=== PATIENT | male | born 1980 | race Caucasian/White ===

== ENCOUNTER 2016-06-30 15:38 | Emergency (ER) | payer BC ==
[2016-06-30] MEDS ORDERED: IBUPROFEN 600 MG TABLET PO ONE (15:48)
--- NOTE | 2016-06-30 15:50 | Emergency Department Record ---
History of Present Illness - General Chief complaint: Extremity Problem Stated complaint: RIGHT WRIST INJURY 06/28/16 Time Seen by Provider: 06/30/16 15:47 Source: Patient Mode of Arrival: Ambulatory Limitations: No limitations - History of Present Illness Initial comments: 36 yo male presents with right wrist pain since . No injury. No fever. The pain is distal over the radial side. No weakness. Certain movements increase the pain. He has had increased manual work at his job the last week. Onset/Timin -: Days(s) Location: Right, Hand -: Yes Myalgia Severity scale (1-10): 8 Quality: Aching Consistency: Constant Improves with: Rest Worsens with: Exertion Associated Symptoms: Denies other symptoms - Related Data Previous Rx's Medication Instructions Recorded Ibuprofen [Motrin 600Mg] 600 mg PO Q6H #20 tablet 06/30/16 Allergies Allergy/AdvReac Type Severity Reaction Status Date / Time No Known Drug Allergies Allergy Verified 06/30/16 15:44 Travel Screening - Travel/Exposure Within Last 30 Days Have you traveled within the last 30 days?: No - Travel/Exposure Within Last Year Have you traveled outside the [place] in the last year?: No - Additonal Travel Details Have you been exposed to anyone with a communicable illness?: No - Travel Symptoms Symptom Screening: None Review of Systems Constitutional: Denies: Chills, Fever, Malaise, Weakness Eyes: Denies: Eye discharge ENT: Denies: Congestion, Throat pain Respiratory: Denies: Cough Cardiovascular: Denies: Chest pain, Palpitations, Syncope Endocrine: Denies: Fatigue Gastrointestinal: Denies: Abdominal pain, Diarrhea, Nausea, Vomiting Genitourinary: Denies: Dysuria, Frequency, Hematuria Musculoskeletal: Reports: Arthralgia, Joint swelling, Myalgia. Denies: Back pain, Neck pain Skin: Denies: Bruising, Change in color, Rash Neurological: Denies: Confusion, Headache Psychiatric: Denies: Anxiety Hematological/Lymphatic: Denies: Blood Clots, Easy bleeding, Easy bruising, Swollen glands Past Medical History - SOCIAL HISTORY Smoking Status: Current every day smoker Alcohol Use: Occassional Drug Use: None - RESPIRATORY Hx Respiratory Disorders: No - CARDIOVASCULAR Hx Cardio Disorders: No - NEURO Hx Neuro Disorders: No - GI Hx GI Disorders: No - Hx Genitourinary Disorders: No - ENDOCRINE Hx Endocrine Disorders: No Hx Diabetes: No Hx Thyroid Disease: No - MUSCULOSKELETAL Hx Musculoskeletal Disorders: No - PSYCH Hx Psych Problems: Yes Hx Anxiety: Yes - HEMATOLOGY/ONCOLOGY Hx Hematology/Oncology Disorders: No Family Medical History Any Significant Family History?: Yes Hx Cancer: Mother, Grandparents Hx Dementia: Grandparents Hx Diabetes: Mother, Brother/Sister Physical Exam - General General Appearance: Alert, Oriented x3, Cooperative, No acute distress Limitations: No limitations - Head Head exam: Normal inspection - Eye Eye exam: Normal appearance, PERRL - ENT ENT exam: Normal exam Ear exam: Normal external inspection Nasal Exam: Normal inspection Mouth exam: Normal external inspection - Neck Neck exam: Normal inspection, Full ROM. negative: Tenderness - Respiratory Respiratory exam: Normal lung sounds bilaterally. negative: Respiratory distress - Cardiovascular Cardiovascular Exam: Regular rate, Normal rhythm, Normal heart sounds Peripheral Pulses: 2+: Radial (R) - Extremities Extremities exam: Normal inspection, Full ROM, Normal capillary refill, Tenderness Image of Hand: 1 - tender along the radial side, no redness, pain wth thumb flexion, no abnormal warmth, intact normal skin, pain with ulnar wrist deviation. - Neurological Neurological exam: Alert, Normal gait, Oriented X3 - Psychiatric Psychiatric exam: Normal affect, Normal mood. negative: Agitated, Anxious - Skin Skin exam: Dry, Intact, Normal color, Warm. negative: Cyanosis, Diaphoretic, Erythema Course Vital Signs 06/30/16 15:40 Temperature 98.2 F Pulse Rate 95 H Respiratory 16 Rate Blood Pressure 144/91 Pulse Ox 98 - Reevaluation(s) Reevaluation #1: XR was negative We discussed tendonitis and home care as well as reasons to return 06/30/16 16:29 Disposition Disposition: Discharge Clinical Impression: Tendonitis Disposition: Home, Self-Care Condition: (1) Good Instructions: Tendinitis (ED) Additional Instructions: Ice 2-3 times daily No lifting or weight bearing until pain free Use the splint for comfort Followup this week with your doctor Prescriptions: Ibuprofen [Motrin 600Mg] 600 mg PO Q6H #20 tablet Forms: Patient Portal Access Time of Disposition: 16:30
--- NOTE | 2016-07-04 12:22 | RADIOLOGY REPORT ---
EXAM: RIGHT WRIST, FIVE VIEWS HISTORY: NO INJURY. RIGHT WRIST PAIN ACUTE EXTENDING INTO RIGHT FOREARM. TECHNIQUE: Five views of the right wrist were obtained. Comparison: None. FINDINGS: No bone or joint abnormality. IMPRESSION: NEGATIVE RIGHT WRIST EXAMINATION. JOB NUMBER: [id number] MTDD
== END 2016-06-30 16:48 | disposition home or self-care (01) ==
LOC: ER 15:38
DX: M70.831 Other soft tissue disorders related to use, overuse and pressure, right forearm (principal)
CPT/HCPCS: 99283

== ENCOUNTER 2018-02-07 17:11 | Emergency (ER) | payer BC ==
[2018-02-07] MEDS ORDERED: 0.9 % SODIUM CHLORIDE 1,000 ML BAG IV ONE (17:31)
[2018-02-07] MEDS ORDERED: KETOROLAC 30 MG/ML VIAL IVP ONE (17:31)
[2018-02-07 17:58] LABS: BASO % 0.7 % (0-6); EOS % 3.1 % (0-6); GRAN % 43.6 % (47-80); HEMATOCRIT 40.5 % (42.0-52.0); HEMOGLOBIN 13.5 gm/dl (14.0-18.0); MEAN CELL VOLUME 86.9 fl (81-97); MEAN CORPUSCULAR HGB CONC 33.3 g/dl (32-36); MEAN PLATELET VOLUME 8.7 fl (7.4-10.4); MONO % 9.6 % (0-9); PLATELET COUNT 263 K/uL (130-400); RED BLOOD COUNT 4.66 M/uL (4.40-5.70); RED CELL DISTRIBUTION WIDTH 13.2 % (11.5-14.5); WHITE BLOOD COUNT W/O DIFF 4.2 K/uL (4.2-12.2)
[2018-02-07 17:59] LABS: MEAN CORPUSCULAR HEMOGLOBIN 28.9 pg (27-33)
[2018-02-07 18:12] LABS: BLOOD UREA NITROGEN 7 mg/dL (6-20); CREATININE 0.7 mg/dL (0.7-1.2); EST GLOMERULAR FILTRATION RATE > 60 mL/min
[2018-02-07 18:15] LABS: GLUCOSE,RANDOM 103 mg/dL (74-109)
[2018-02-07] MEDS ORDERED: POTASSIUM CHLORIDE 20 MEQ TABLET PO ONE (18:43)
--- NOTE | 2018-02-07 18:56 | Emergency Department Record ---
History of Present Illness - General Chief Complaint: Headache Migraine Stated Complaint: SCHMID Time Seen by Provider: 02/07/18 17:23 Source: Patient Mode of Arrival: Wheelchair Limitations: No limitations - History of Present Illness Initial Comments: pt has had a headache since saturday when he was camping out in the heat. he was seen in [facility] care on saturday and had a neg strep and was told his wbcs were low. he was running a fever at the time. since then he has contd to have a headache that is global that is a 2 when he sits but is an 8 when he bends over. the headache started gradually. he has no other symptoms. he has no n/ v. no sinus congestion. MD Complaint: Headache Onset/Timin -: Days(s) Onset Description: Gradual Location: Other Severity: Moderate Severity scale (1-10): 2 Quality: Aching, Other Consistency: Constant, Intermittent Improves With: Nothing Worsens With: Immobilization, Movement of head/neck Associated Symptoms: Fever, Other Treatments Prior to Arrival: None - Symptoms of Stroke Symptoms of stroke: Dizziness - Related Data Home Medications Medication Instructions Recorded Confirmed Last Taken No Home Med [NO HOME MEDS] 02/07/18 02/07/18 Unknown Allergies Allergy/AdvReac Type Severity Reaction Status Date / Time No Known Drug Allergies Allergy Unverified 08/24/16 14:56 Travel Screening - Travel/Exposure Within Last 30 Days Have you traveled within the last 30 days?: No Review of Systems Reviewed: No additional complaints except as noted below Constitutional: Reports: As per HPI, Fever. Denies: Chills, Malaise, Night sweats, Weakness, Weight change Eyes: Reports: As per HPI. Denies: Eye discharge, Eye pain, Photophobia, Vision change ENT: Reports: As per HPI. Denies: Congestion, Dental pain, Ear pain, Epistaxis , Hearing loss, Throat pain Respiratory: Reports: As per HPI. Denies: Cough, Dyspnea, Hemoptysis, Stridor, Wheezes Cardiovascular: Reports: As per HPI. Denies: Arrhythmia, Chest pain, Dyspnea on exertion, Edema, Murmurs, Orthopnea, Palpitations, Paroxysmal nocturnal dyspnea, Rheumatic Fever, Syncope Endocrine: Reports: As per HPI. Denies: Fatigue, Heat or cold intolerance, Polydipsia, Polyuria Gastrointestinal: Reports: As per HPI. Denies: Abdominal pain, Constipation, Diarrhea, Hematemesis, Hematochezia, Melena, Nausea, Vomiting Genitourinary: Reports: As per HPI. Denies: Dysuria, Frequency, Hematuria, Incontinence, Retention, Testicular pain, Testicular mass, Urgency Musculoskeletal: Reports: As per HPI. Denies: Arthralgia, Back pain, Gout, Joint swelling, Myalgia, Neck pain Skin: Reports: As per HPI. Denies: Bruising, Change in color, Change in hair/ nails, Lesions, Pruritus, Rash Neurological: Reports: As per HPI, Headache. Denies: Abnormal gait, Confusion, Numbness, Paresthesias, Seizure, Tingling, Tremors, Vertigo, Weakness Psychiatric: Reports: As per HPI. Denies: Anxiety, Auditory hallucinations, Depression, Homicidal thoughts, Suicidal thoughts, Visual hallucinations Hematological/Lymphatic: Reports: As per HPI. Denies: Anemia, Blood Clots, Easy bleeding, Easy bruising, Swollen glands Past Medical History - SOCIAL HISTORY Smoking Status: Current every day smoker Alcohol Use: None Drug Use: None - RESPIRATORY Hx Respiratory Disorders: No - CARDIOVASCULAR Hx Cardio Disorders: No - NEURO Hx Neuro Disorders: No - GI Hx GI Disorders: No - Hx Genitourinary Disorders: No - ENDOCRINE Hx Endocrine Disorders: No Hx Diabetes: No Hx Thyroid Disease: No - MUSCULOSKELETAL Hx Musculoskeletal Disorders: No - PSYCH Hx Psych Problems: Yes Hx Anxiety: Yes - HEMATOLOGY/ONCOLOGY Hx Hematology/Oncology Disorders: No Family Medical History Any Significant Family History?: Yes Hx Cancer: Mother, Grandparents Hx Dementia: Grandparents Hx Diabetes: Mother, Brother/Sister Physical Exam - General General Appearance: Alert, Oriented x3, Cooperative, Mild distress - Head Head exam: Normal inspection - Eye Eye exam: Normal appearance, PERRL, EOMI Pupils: Normal accommodation - ENT ENT exam: Normal exam, Mucous membranes moist, Normal external ear exam, Normal orophraynx Ear exam: Normal external inspection. negative: External canal tenderness Nasal Exam: Normal inspection. negative: Discharge, Sinus tenderness Mouth exam: Normal external inspection, Tongue normal Teeth exam: Normal inspection. negative: Dental caries Throat exam: Normal inspection. negative: Tonsillar erythema, Tonsillar exudate - Neck Neck exam: Normal inspection, Full ROM. negative: Tenderness - Respiratory Respiratory exam: Normal lung sounds bilaterally. negative: Respiratory distress - Cardiovascular Cardiovascular Exam: Regular rate, Normal rhythm, Normal heart sounds - GI/Abdominal GI/Abdominal exam: Soft, Normal bowel sounds. negative: Tenderness - Rectal Rectal exam: Deferred - exam: Deferred - Extremities Extremities exam: Normal inspection, Full ROM, Normal capillary refill. negative: Tenderness - Back Back exam: Reports: Normal inspection, Full ROM. Denies: Muscle spasm, Rash noted, Tenderness - Neurological Neurological exam: Alert, CN II-XII intact, Normal gait, Oriented X3 - Psychiatric Psychiatric exam: Normal affect, Normal mood - Skin Skin exam: Dry, Intact, Normal color, Warm Course Vital Signs 02/07/18 17:18 Temperature 98.6 F Pulse Rate [ 71 Pulse Ox Probe] Respiratory 18 Rate Blood Pressure 130/95 [Left Arm] Pulse Ox 98 - Reevaluation(s) Reevaluation #1: 02/07/18 19:20 pt feels better Reevaluation #2: 02/07/18 19:21 pt feels much better. ct neg except deviated septum. pts symptoms does not warrant an lp and does not want one 02/07/18 19:22 Medical Decision Making - Lab Data Result diagrams: 02/07/18 17:50 02/07/18 17:50 Lab Results 02/07/18 02/07/18 02/07/18 Range/Units 17:50 17:50 17:50 WBC 4.2 (4.2-12.2) K/uL RBC 4.66 (4.40-5.70) M/uL Hgb 13.5 L (14.0-18.0) gm/dl Hct 40.5 L (42.0-52.0) % MCV 86.9 (81-97) fl MCH 28.9 (27-33) pg MCHC 33.3 (32-36) g/dl RDW 13.2 (11.5-14.5) % Plt Count 263 (130-400) K/uL MPV 8.7 (7.4-10.4) fl Gran % 43.6 L (47-80) % Lymphocytes % 43.0 (16-45) % Monocytes % 9.6 H (0-9) % Eosinophils % 3.1 (0-6) % Basophils % 0.7 (0-6) % Sodium 141 (136-145) mmol/L Potassium 3.3 L (3.4-4.5) mmol/L Chloride 101 (98-107) mmol/L Carbon Dioxide 29.0 (22-29) mmol/L Anion Gap 11.0 (7-16) BUN 7 (6-20) mg/dL Creatinine 0.7 (0.7-1.2) mg/dL Estimated GFR > 60 mL/min Random Glucose 103 (74-109) mg/dL Calcium 8.7 (8.6-10.0) mg/dL Monoscreen (NEGATIVE) Group A Strep Screen Negative (NEGATIVE) 02/07/18 Range/Units 17:50 WBC (4.2-12.2) K/uL RBC (4.40-5.70) M/uL Hgb (14.0-18.0) gm/dl Hct (42.0-52.0) % MCV (81-97) fl MCH (27-33) pg MCHC (32-36) g/dl RDW (11.5-14.5) % Plt Count (130-400) K/uL MPV (7.4-10.4) fl Gran % (47-80) % Lymphocytes % (16-45) % Monocytes % (0-9) % Eosinophils % (0-6) % Basophils % (0-6) % Sodium (136-145) mmol/L Potassium (3.4-4.5) mmol/L Chloride (98-107) mmol/L Carbon Dioxide (22-29) mmol/L Anion Gap (7-16) BUN (6-20) mg/dL Creatinine (0.7-1.2) mg/dL Estimated GFR mL/min Random Glucose (74-109) mg/dL Calcium (8.6-10.0) mg/dL Monoscreen Negative (NEGATIVE) Group A Strep Screen (NEGATIVE) Disposition Disposition: Discharge Clinical Impression: Hypokalemia Headache Qualifiers: Headache type: unspecified Headache chronicity pattern: acute headache Intractability: intractable Qualified Code(s): R51 - Headache Disposition: Home, Self-Care Condition: (1) Good Instructions: Acute Headache (ED) Additional Instructions: follow up with family doctor. return sooner if worse . push fluids. if headaches continue follow up with neurologist. rest Forms: Patient Portal Access Quality - Quality Measures Quality Measures: N/A - Blood Pressure Screening Does Patient Have Any of the Following: No Blood Pressure Classification: Pre-Hypertensive BP Reading Systolic Measurement: 116 Diastolic Measurement: 80 Screening for High Blood Pressure: < Pre-Hypertensive BP, F/U Documented > [ G8950] Pre-Hypertensive Follow-up Interventions: Follow-up with rescreen every year.
[2018-02-07] MEDS ORDERED: ACETAMINOPHEN 500 MG TABLET PO ONE (18:59)
--- NOTE | 2018-02-09 10:16 | CT SCAN REPORT ---
EXAM: CT SCAN HEAD WO CONTRAST HISTORY: INTRACTABLE HEADACHE. TECHNIQUE: Axial CT scan of the head performed without IV contrast. COMPARISON: None. FINDINGS: No definite acute intracranial hemorrhage identified. No focal mass effect or midline shift apparent. No definite acute infarct or intracranial mass lesion seen. Deviation of the nasal septum to the right. No depressed calvarial fracture evident. IMPRESSION: 1. EMERGENCY NONCONTRAST HEAD CT APPEARS ESSENTIALLY NEGATIVE WITH NO DEFINITE ACUTE INTRACRANIAL HEMORRHAGE OR FOCAL MASS EFFECT EVIDENT. THERE IS DEVIATION OF THE NASAL SEPTUM TO THE RIGHT. 2. IF THE PATIENT'S NEUROLOGIC SYMPTOMS PERSIST, FOLLOW-UP BRAIN MRI MAY BE USEFUL FOR FURTHER EVALUATION, IF NOT CONTRAINDICATED. JOB NUMBER: [id number] MTDD
== END 2018-02-07 19:34 | disposition home or self-care (01) ==
LOC: ER 17:11
DX: R51 Headache (principal); E87.6 Hypokalemia; M54.2 Cervicalgia; F17.210 Nicotine dependence, cigarettes, uncomplicated
CPT/HCPCS: 99284 ×2; 96374; 96361; 85025; 82375; 80048; 87880; 86308; 70450; J1885; J7030

== ENCOUNTER 2018-11-15 07:50 | Emergency (ER) | payer BC, MEDICAID ==
[2018-11-15] MEDS ORDERED: Diph,Pert(Acell),Tet Vac 0.5 ML SYR IM ONE (08:03)
--- NOTE | 2018-11-15 08:03 | Emergency Department Record ---
History of Present Illness - General Chief Complaint: Wound, puncture Stated Complaint: PUNCTURE WOUND/LT FOREARM Time Seen by Provider: 11/15/18 07:57 Source: Patient Mode of Arrival: Ambulatory - History of Present Illness Initial Commments: the patient was at work moving metal sheets through a machine which had jammed. He move a jammed metal shee to "un-jam" it, and it punctured his left proximal forearm around 0600. He is NOT UTD on his tetanus. Onset/Timin -: Hour(s) Place: Work Context: Accidental Associated Symptoms: Pain Treatments Prior to Arrival: Bandage - Related Data Hx Tetanus Toxoid Vaccination: Yes Year of Tetanus Vaccination: 2011 Previous Rx's Medication Instructions Recorded Cephalexin [Keflex] 500 mg PO QID #39 cap 11/15/18 Allergies Allergy/AdvReac Type Severity Reaction Status Date / Time No Known Drug Allergies Allergy Unverified 08/24/16 14:56 Travel Screening - Travel/Exposure Within Last 30 Days Have you traveled within the last 30 days?: No Review of Systems Reviewed: No additional complaints except as noted below Constitutional: Reports: As per HPI. Denies: Chills, Fever, Malaise, Night sweats, Weakness, Weight change Eyes: Reports: As per HPI. Denies: Eye discharge, Eye pain, Photophobia, Vision change ENT: Reports: As per HPI. Denies: Congestion, Dental pain, Ear pain, Epistaxis, Hearing loss, Throat pain Respiratory: Reports: As per HPI. Denies: Cough, Dyspnea, Hemoptysis, Stridor, Wheezes Cardiovascular: Reports: As per HPI. Denies: Arrhythmia, Chest pain, Dyspnea on exertion, Edema, Murmurs, Orthopnea, Palpitations, Paroxysmal nocturnal dyspnea, Rheumatic Fever, Syncope Endocrine: Reports: As per HPI. Denies: Fatigue, Heat or cold intolerance, Polydipsia, Polyuria Gastrointestinal: Reports: As per HPI. Denies: Abdominal pain, Constipation, Diarrhea, Hematemesis, Hematochezia, Melena, Nausea, Vomiting Genitourinary: Reports: As per HPI. Denies: Dysuria, Frequency, Hematuria, Incontinence, Retention, Testicular pain, Testicular mass, Urgency Musculoskeletal: Reports: As per HPI. Denies: Arthralgia, Back pain, Gout, Joint swelling, Myalgia, Neck pain Skin: Reports: As per HPI. Denies: Bruising, Change in color, Change in hair/nails, Lesions, Pruritus, Rash Neurological: Reports: As per HPI. Denies: Abnormal gait, Confusion, Headache, Numbness, Paresthesias, Seizure, Tingling, Tremors, Vertigo, Weakness Psychiatric: Reports: As per HPI. Denies: Anxiety, Auditory hallucinations, Depression, Homicidal thoughts, Suicidal thoughts, Visual hallucinations Hematological/Lymphatic: Reports: As per HPI. Denies: Anemia, Blood Clots, Easy bleeding, Easy bruising, Swollen glands Past Medical History - SOCIAL HISTORY Smoking Status: Current every day smoker - RESPIRATORY Hx Respiratory Disorders: No - CARDIOVASCULAR Hx Cardio Disorders: No - NEURO Hx Neuro Disorders: No - GI Hx GI Disorders: No - Hx Genitourinary Disorders: No - ENDOCRINE Hx Endocrine Disorders: No Hx Diabetes: No Hx Thyroid Disease: No - MUSCULOSKELETAL Hx Musculoskeletal Disorders: No - PSYCH Hx Psych Problems: Yes Hx Anxiety: Yes - HEMATOLOGY/ONCOLOGY Hx Hematology/Oncology Disorders: No Family Medical History Any Significant Family History?: Yes Hx Cancer: Mother, Grandparents Hx Dementia: Grandparents Hx Diabetes: Mother, Brother/Sister Physical Exam - General General Appearance: Alert, Oriented x3, Cooperative, No acute distress - Head Head exam: Normal inspection - Eye Eye exam: Normal appearance, PERRL Pupils: Normal accommodation - ENT ENT exam: Normal exam, Mucous membranes moist, Normal external ear exam, Normal orophraynx, TM's normal bilaterally Ear exam: Normal external inspection. negative: External canal tenderness Nasal Exam: Normal inspection. negative: Discharge, Sinus tenderness Mouth exam: Normal external inspection, Tongue normal Teeth exam: Normal inspection. negative: Dental caries Throat exam: Normal inspection. negative: Tonsillar erythema, Tonsillomegaly, Tonsillar exudate - Neck Neck exam: Normal inspection, Full ROM. negative: Lymphadenopathy, Meningismus, Tenderness - Respiratory Respiratory exam: Normal lung sounds bilaterally. negative: Respiratory distress - Cardiovascular Cardiovascular Exam: Regular rate, Normal rhythm, Normal heart sounds - GI/Abdominal GI/Abdominal exam: Soft. negative: Tenderness - Rectal Rectal exam: Deferred - exam: Deferred - Extremities Extremities exam: Normal inspection, Full ROM, Normal capillary refill, Other (laceration to proximal left forearm 2cm in length). negative: Tenderness - Back Back exam: Reports: Normal inspection, Full ROM. Denies: Muscle spasm, Rash noted, Tenderness Image of Body Front/Back: 1 - 2 cm laceration - Neurological Neurological exam: Alert, CN II-XII intact, Normal gait, Oriented X3, Reflexes normal. negative: Motor sensory deficit - Psychiatric Psychiatric exam: Normal affect, Normal mood - Skin Skin exam: Dry, Intact, Normal color, Warm Course - Reevaluation(s) Reevaluation #1: 11/15/18 08:17 PROCEDURE: Locally anesthetized with lido 1% no epi 4.5cc ; sterile technique, copious irrigation of wound, explored for evidence of FB, none found; patient informed of possibility of occult retained FB, tendon involvement, tendon sheath infection, possible need for further care of infected or FB retention, etc. Wound closed with #3 4.0 prolene simple interrupteds. Patient tolerated procedure well. All questions answered. Medical Decision Making - Management Options MDM Management: No Additional Work-up Planned Disposition Disposition: Discharge Clinical Impression: Laceration of forearm, left Qualifiers: Encounter type: initial encounter Qualified Code(s): S51.812A - Laceration without foreign body of left forearm, initial encounter Disposition: Home, Self-Care Condition: (1) Good Instructions: Care For Your Stitches (ED), Laceration (ED), Wound Infection (ED), Wound Healing and Your Diet (ED), Wound Dehiscence (ED) Additional Instructions: Keep wound clean and dry until healed. Take antibiotics as directed until gone: Keflex 500 mg 4 times daily for 10 days. Tylenol alternated with ibuprofen as directed as needed for pain. Suture removal 10 days. PCP follow up for your blood pressure, which was elevated this visit, and for routine care. Prescriptions: Cephalexin [Keflex] 500 mg PO QID #39 cap Quality - Quality Measures Quality Measures: N/A - Blood Pressure Screening Does Patient Have Any of the Following: No Blood Pressure Classification: Hypertensive Reading Systolic Measurement: 143 Diastolic Measurement: 99 Screening for High Blood Pressure: < Pre-Hypertensive BP, F/U Documented > [G8950] Pre-Hypertensive Follow-up Interventions: Follow-up with rescreen every year.
[2018-11-15] MEDS ORDERED: CEPHALEXIN 500 MG CAPSULE PO STA (08:08)
--- NOTE | 2018-11-16 21:13 | RADIOLOGY REPORT ---
EXAM: FOREARM, LEFT HISTORY: PUNCTURE WOUND TO MEDIAL FOREARM WITH METAL. TECHNIQUE: Two views of the left forearm. COMPARISON: None. FINDINGS: Medial forearm soft tissue irregularity compatible with history of laceration/puncture. No metallic or other radiopaque foreign body. No fracture. Limited characterization of the adjacent elbow and wrist, no obvious dislocation. IMPRESSION: 1. MEDIAL FOREARM SOFT TISSUE INJURY. NO ASSOCIATED RADIOPAQUE FOREIGN BODY. 2. NO ACUTE OSSEOUS FINDINGS. [facility]: [id number] [facility]
== END 2018-11-15 08:55 | disposition home or self-care (01) ==
LOC: ER 07:50
DX: S51.812A Laceration without foreign body of left forearm, initial encounter (principal); M79.632 Pain in left forearm; W26.8XXA Contact with other sharp object(s), not elsewhere classified, initial encounter; Y92.63 Factory as the place of occurrence of the external cause; Y90.0 Blood alcohol level of less than 20 mg/100 ml; F17.210 Nicotine dependence, cigarettes, uncomplicated
CPT/HCPCS: 12031; 90715; 96372; 99283; 99284

== ENCOUNTER 2018-11-26 11:30 | Emergency (ER) | payer BC ==
--- NOTE | 2018-11-26 11:42 | Emergency Department Record ---
History of Present Illness - General Chief Complaint: Suture removal Stated Complaint: SUTURE REMOVED Time Seen by Provider: 11/26/18 11:38 Source: Patient, RN notes reviewed - History of Present Illness Initial Comments: suture removal ,11 days ago healing , no signs of infection - Related Data Previous Rx's Medication Instructions Recorded Cephalexin [Keflex] 500 mg PO QID #39 cap 11/15/18 Allergies Allergy/AdvReac Type Severity Reaction Status Date / Time No Known Drug Allergies Allergy Verified 11/26/18 11:36 Review of Systems Reviewed: No additional complaints except as noted below Constitutional: Reports: As per HPI. Denies: Chills, Fever, Malaise, Night sweats, Weakness, Weight change Eyes: Reports: As per HPI. Denies: Eye discharge, Eye pain, Photophobia, Vision change ENT: Reports: As per HPI. Denies: Congestion, Dental pain, Ear pain, Epistaxis, Hearing loss, Throat pain Respiratory: Reports: As per HPI. Denies: Cough, Dyspnea, Hemoptysis, Stridor, Wheezes Cardiovascular: Reports: As per HPI. Denies: Arrhythmia, Chest pain, Dyspnea on exertion, Edema, Murmurs, Orthopnea, Palpitations, Paroxysmal nocturnal dyspnea, Rheumatic Fever, Syncope Endocrine: Reports: As per HPI. Denies: Fatigue, Heat or cold intolerance, Polydipsia, Polyuria Gastrointestinal: Reports: As per HPI. Denies: Abdominal pain, Constipation, Diarrhea, Hematemesis, Hematochezia, Melena, Nausea, Vomiting Genitourinary: Reports: As per HPI. Denies: Dysuria, Frequency, Hematuria, Incontinence, Retention, Testicular pain, Testicular mass, Urgency Musculoskeletal: Reports: As per HPI. Denies: Arthralgia, Back pain, Gout, Joint swelling, Myalgia, Neck pain Skin: Reports: As per HPI. Denies: Bruising, Change in color, Change in hair/nails, Lesions, Pruritus, Rash Neurological: Reports: As per HPI. Denies: Abnormal gait, Confusion, Headache, Numbness, Paresthesias, Seizure, Tingling, Tremors, Vertigo, Weakness Psychiatric: Reports: As per HPI. Denies: Anxiety, Auditory hallucinations, Depression, Homicidal thoughts, Suicidal thoughts, Visual hallucinations Hematological/Lymphatic: Reports: As per HPI. Denies: Anemia, Blood Clots, Easy bleeding, Easy bruising, Swollen glands Past Medical History - SOCIAL HISTORY Smoking Status: Current every day smoker - RESPIRATORY Hx Respiratory Disorders: No - CARDIOVASCULAR Hx Cardio Disorders: No - NEURO Hx Neuro Disorders: No - GI Hx GI Disorders: No - Hx Genitourinary Disorders: No - ENDOCRINE Hx Endocrine Disorders: No Hx Diabetes: No Hx Thyroid Disease: No - MUSCULOSKELETAL Hx Musculoskeletal Disorders: No - PSYCH Hx Psych Problems: Yes Hx Anxiety: Yes - HEMATOLOGY/ONCOLOGY Hx Hematology/Oncology Disorders: No Family Medical History Hx Cancer: Mother, Grandparents Hx Dementia: Grandparents Hx Diabetes: Mother, Brother/Sister Physical Exam - General General Appearance: Alert, Oriented x3, Cooperative, No acute distress - Head Head exam: Normal inspection - Eye Eye exam: Normal appearance, PERRL Pupils: Normal accommodation - ENT ENT exam: Normal exam, Mucous membranes moist, Normal external ear exam, Normal orophraynx, TM's normal bilaterally Ear exam: Normal external inspection. negative: External canal tenderness Nasal Exam: Normal inspection. negative: Discharge, Sinus tenderness Mouth exam: Normal external inspection, Tongue normal Teeth exam: Normal inspection. negative: Dental caries Throat exam: Normal inspection. negative: Tonsillar erythema, Tonsillar exudate - Neck Neck exam: Normal inspection, Full ROM. negative: Tenderness - Respiratory Respiratory exam: Normal lung sounds bilaterally. negative: Respiratory distress - Cardiovascular Cardiovascular Exam: Regular rate, Normal rhythm, Normal heart sounds - GI/Abdominal GI/Abdominal exam: Soft, Normal bowel sounds. negative: Tenderness - Rectal Rectal exam: Deferred - exam: Deferred - Extremities Extremities exam: Normal inspection, Full ROM, Normal capillary refill. negative: Tenderness - Back Back exam: Reports: Normal inspection, Full ROM. Denies: Muscle spasm, Rash noted, Tenderness - Neurological Neurological exam: Alert, Normal gait, Oriented X3, Reflexes normal - Psychiatric Psychiatric exam: Normal affect, Normal mood - Skin Skin exam: Dry, Intact, Normal color, Warm Course - Reevaluation(s) Reevaluation #1: suture removal 11/26/18 11:40 Disposition Clinical Impression: Visit for suture removal Disposition: Home, Self-Care Condition: (1) Good Instructions: Stitches Removal (ED) Time of Disposition: 11:41 Quality - Quality Measures Quality Measures: N/A - Blood Pressure Screening Does Patient Have Any of the Following: No, Active Dx of HTN Systolic Measurement: ~ Screening for High Blood Pressure: Patient Exclusion, Hx of HTN [[id number]]
== END 2018-11-26 11:53 | disposition home or self-care (01) ==
LOC: ER 11:30
DX: Z48.02 Encounter for removal of sutures (principal)